=== PATIENT | female | born 1940 | race Caucasian/White ===

== ENCOUNTER 2020-11-08 11:22 | Outpatient (CLI) | payer MEDICARE, OTHER | END 2020-11-08 11:23 | disposition home or self-care (01) | LOC: CSHWCC 11:22 | PROVIDERS: ATTEND Nurse Practitioner Family | DX: I87.2 Venous insufficiency (chronic) (peripheral) (principal); E11.621 Type 2 diabetes mellitus with foot ulcer; L97.412 Non-pressure chronic ulcer of right heel and midfoot with fat layer exposed; L97.512 Non-pressure chronic ulcer of other part of right foot with fat layer exposed; E11.622 Type 2 diabetes mellitus with other skin ulcer; L97.322 Non-pressure chronic ulcer of left ankle with fat layer exposed; E11.51 Type 2 diabetes mellitus with diabetic peripheral angiopathy without gangrene; I70.203 Unspecified atherosclerosis of native arteries of extremities, bilateral legs; E11.69 Type 2 diabetes mellitus with other specified complication; M86.171 Other acute osteomyelitis, right ankle and foot; I89.0 Lymphedema, not elsewhere classified; B96.89 Other specified bacterial agents as the cause of diseases classified elsewhere; E03.8 Other specified hypothyroidism; J44.9 Chronic obstructive pulmonary disease, unspecified; L08.89 Other specified local infections of the skin and subcutaneous tissue; L27.9 Dermatitis due to unspecified substance taken internally; L90.6 Striae atrophicae; L95.0 Livedoid vasculitis; M79.604 Pain in right leg; R19.7 Diarrhea, unspecified; R60.0 Localized edema; S69.90XS Unspecified injury of unspecified wrist, hand and finger(s), sequela | CPT/HCPCS: 11042; 29581; 99213; G0463 ==

== ENCOUNTER 2020-11-29 11:39 | Outpatient (CLI) | payer MEDICARE, OTHER | END 2020-11-29 11:40 | disposition home or self-care (01) | LOC: CSHWCC 11:39 | PROVIDERS: ATTEND Nurse Practitioner Family | DX: S69.90XD Unspecified injury of unspecified wrist, hand and finger(s), subsequent encounter (principal); E11.621 Type 2 diabetes mellitus with foot ulcer; L97.412 Non-pressure chronic ulcer of right heel and midfoot with fat layer exposed; L97.512 Non-pressure chronic ulcer of other part of right foot with fat layer exposed; R60.0 Localized edema; L08.89 Other specified local infections of the skin and subcutaneous tissue; B96.89 Other specified bacterial agents as the cause of diseases classified elsewhere; E03.8 Other specified hypothyroidism; I70.203 Unspecified atherosclerosis of native arteries of extremities, bilateral legs; I87.2 Venous insufficiency (chronic) (peripheral); I89.0 Lymphedema, not elsewhere classified; J44.9 Chronic obstructive pulmonary disease, unspecified; L27.9 Dermatitis due to unspecified substance taken internally; L90.6 Striae atrophicae; L95.0 Livedoid vasculitis; M79.604 Pain in right leg; M86.171 Other acute osteomyelitis, right ankle and foot; R19.7 Diarrhea, unspecified | CPT/HCPCS: 29581; 97139; G0463; 99213 ==

== ENCOUNTER 2020-12-20 09:55 | Outpatient (CLI) | payer MEDICARE, OTHER | END 2020-12-20 09:56 | disposition home or self-care (01) | LOC: CSHWCC 09:55 | PROVIDERS: ATTEND Nurse Practitioner Family | DX: S69.90XD Unspecified injury of unspecified wrist, hand and finger(s), subsequent encounter (principal); E11.621 Type 2 diabetes mellitus with foot ulcer; L97.412 Non-pressure chronic ulcer of right heel and midfoot with fat layer exposed; L97.512 Non-pressure chronic ulcer of other part of right foot with fat layer exposed; R60.0 Localized edema; L08.89 Other specified local infections of the skin and subcutaneous tissue; B96.89 Other specified bacterial agents as the cause of diseases classified elsewhere; E03.8 Other specified hypothyroidism; I70.203 Unspecified atherosclerosis of native arteries of extremities, bilateral legs; I87.2 Venous insufficiency (chronic) (peripheral); I89.0 Lymphedema, not elsewhere classified; J44.9 Chronic obstructive pulmonary disease, unspecified; L27.9 Dermatitis due to unspecified substance taken internally; L90.6 Striae atrophicae; L95.0 Livedoid vasculitis; M79.604 Pain in right leg; M86.171 Other acute osteomyelitis, right ankle and foot; R19.7 Diarrhea, unspecified | CPT/HCPCS: 11042; 29581; 97139; G0463; 99214 ==

== ENCOUNTER 2021-04-04 09:45 | Outpatient (CLI) | payer OTHER | END 2021-04-04 09:46 | disposition home or self-care (01) | LOC: CSHWCC 09:45 | PROVIDERS: ATTEND Nurse Practitioner Family | DX: S69.90XS Unspecified injury of unspecified wrist, hand and finger(s), sequela (principal); E11.621 Type 2 diabetes mellitus with foot ulcer; L97.412 Non-pressure chronic ulcer of right heel and midfoot with fat layer exposed; R60.0 Localized edema; I87.2 Venous insufficiency (chronic) (peripheral); I89.0 Lymphedema, not elsewhere classified; M86.171 Other acute osteomyelitis, right ankle and foot; M79.604 Pain in right leg; I70.203 Unspecified atherosclerosis of native arteries of extremities, bilateral legs; R19.7 Diarrhea, unspecified; L27.9 Dermatitis due to unspecified substance taken internally; L90.6 Striae atrophicae; L95.0 Livedoid vasculitis; J44.9 Chronic obstructive pulmonary disease, unspecified; E03.8 Other specified hypothyroidism; B96.89 Other specified bacterial agents as the cause of diseases classified elsewhere | CPT/HCPCS: 29581; 99213; G0463 ==

== ENCOUNTER 2021-07-04 10:40 | Outpatient (CLI) | payer OTHER | END 2021-07-04 10:41 | disposition home or self-care (01) | LOC: CSHWCC 10:40 | PROVIDERS: ATTEND Nurse Practitioner Family | DX: I87.2 Venous insufficiency (chronic) (peripheral) (principal); S69.90XD Unspecified injury of unspecified wrist, hand and finger(s), subsequent encounter; E11.621 Type 2 diabetes mellitus with foot ulcer; L97.412 Non-pressure chronic ulcer of right heel and midfoot with fat layer exposed; E11.51 Type 2 diabetes mellitus with diabetic peripheral angiopathy without gangrene; B96.89 Other specified bacterial agents as the cause of diseases classified elsewhere; E03.8 Other specified hypothyroidism; I70.203 Unspecified atherosclerosis of native arteries of extremities, bilateral legs; I89.0 Lymphedema, not elsewhere classified; J44.9 Chronic obstructive pulmonary disease, unspecified; L08.89 Other specified local infections of the skin and subcutaneous tissue; L27.9 Dermatitis due to unspecified substance taken internally; L90.6 Striae atrophicae; L95.0 Livedoid vasculitis; M79.604 Pain in right leg; M86.171 Other acute osteomyelitis, right ankle and foot; R19.7 Diarrhea, unspecified; R60.0 Localized edema | CPT/HCPCS: 29581; 99213; G0463 ==

== ENCOUNTER 2021-08-22 15:10 | Outpatient (CLI) | payer OTHER | END 2021-08-22 15:11 | disposition home or self-care (01) | LOC: CSHWCC 15:10 | PROVIDERS: ATTEND Nurse Practitioner Family | DX: I87.2 Venous insufficiency (chronic) (peripheral) (principal); E11.621 Type 2 diabetes mellitus with foot ulcer; L97.411 Non-pressure chronic ulcer of right heel and midfoot limited to breakdown of skin; L97.412 Non-pressure chronic ulcer of right heel and midfoot with fat layer exposed; L97.521 Non-pressure chronic ulcer of other part of left foot limited to breakdown of skin; L97.511 Non-pressure chronic ulcer of other part of right foot limited to breakdown of skin; I70.203 Unspecified atherosclerosis of native arteries of extremities, bilateral legs; I89.0 Lymphedema, not elsewhere classified; R60.0 Localized edema; E11.69 Type 2 diabetes mellitus with other specified complication; M86.171 Other acute osteomyelitis, right ankle and foot; J44.9 Chronic obstructive pulmonary disease, unspecified; S69.90XD Unspecified injury of unspecified wrist, hand and finger(s), subsequent encounter; B96.89 Other specified bacterial agents as the cause of diseases classified elsewhere; E03.8 Other specified hypothyroidism; L08.89 Other specified local infections of the skin and subcutaneous tissue; L27.9 Dermatitis due to unspecified substance taken internally; L90.6 Striae atrophicae; L95.0 Livedoid vasculitis; M79.604 Pain in right leg; R19.7 Diarrhea, unspecified ==

== ENCOUNTER 2021-09-19 13:11 | Outpatient (CLI) | payer MEDICARE, OTHER | END 2021-09-19 13:12 | disposition home or self-care (01) | LOC: CSHWCC 13:11 | PROVIDERS: ATTEND Nurse Practitioner Family | DX: I87.2 Venous insufficiency (chronic) (peripheral) (principal); E11.621 Type 2 diabetes mellitus with foot ulcer; L97.412 Non-pressure chronic ulcer of right heel and midfoot with fat layer exposed; L97.512 Non-pressure chronic ulcer of other part of right foot with fat layer exposed; L97.322 Non-pressure chronic ulcer of left ankle with fat layer exposed; S69.90XD Unspecified injury of unspecified wrist, hand and finger(s), subsequent encounter; E11.51 Type 2 diabetes mellitus with diabetic peripheral angiopathy without gangrene; I70.203 Unspecified atherosclerosis of native arteries of extremities, bilateral legs; E11.69 Type 2 diabetes mellitus with other specified complication; M86.171 Other acute osteomyelitis, right ankle and foot; R60.0 Localized edema; I89.0 Lymphedema, not elsewhere classified; B96.89 Other specified bacterial agents as the cause of diseases classified elsewhere; E03.8 Other specified hypothyroidism; J44.9 Chronic obstructive pulmonary disease, unspecified; L08.89 Other specified local infections of the skin and subcutaneous tissue; L27.9 Dermatitis due to unspecified substance taken internally; L90.6 Striae atrophicae; L95.0 Livedoid vasculitis; M79.604 Pain in right leg; R19.7 Diarrhea, unspecified ==

== ENCOUNTER 2021-10-17 13:21 | Outpatient (CLI) | payer MEDICARE, OTHER | END 2021-10-17 13:22 | disposition home or self-care (01) | LOC: CSHWCC 13:21 | PROVIDERS: ATTEND Nurse Practitioner Family | DX: L97.522 Non-pressure chronic ulcer of other part of left foot with fat layer exposed (principal); L97.512 Non-pressure chronic ulcer of other part of right foot with fat layer exposed; R60.0 Localized edema | CPT/HCPCS: 97139; G0463; 99214 ==

== ENCOUNTER 2021-12-26 12:50 | Outpatient (CLI) | payer OTHER, MEDICARE | END 2021-12-26 12:51 | disposition home or self-care (01) | LOC: CSHWCC 12:50 | PROVIDERS: ATTEND Nurse Practitioner Family | DX: L97.512 Non-pressure chronic ulcer of other part of right foot with fat layer exposed (principal); R60.0 Localized edema ==

== ENCOUNTER 2022-01-23 10:30 | Outpatient (CLI) | payer MEDICARE, OTHER | END 2022-01-23 10:31 | disposition home or self-care (01) | LOC: CSHWCC 10:30 | PROVIDERS: ATTEND Nurse Practitioner Family | DX: S91.309D Unspecified open wound, unspecified foot, subsequent encounter (principal); R60.0 Localized edema | CPT/HCPCS: 29581 ==

== ENCOUNTER 2022-02-13 10:33 | Outpatient (CLI) | payer MEDICARE, OTHER | END 2022-02-13 10:34 | disposition home or self-care (01) | LOC: CSHWCC 10:33 | PROVIDERS: ATTEND Nurse Practitioner Family | DX: S91.301D Unspecified open wound, right foot, subsequent encounter (principal); R60.0 Localized edema | CPT/HCPCS: 29581 ==

== ENCOUNTER 2022-03-11 09:55 | Outpatient (CLI) | payer MEDICARE, OTHER | END 2022-03-11 09:56 | disposition home or self-care (01) | LOC: CSHWCC 09:55 | PROVIDERS: ATTEND Nurse Practitioner Family | DX: S51.002D Unspecified open wound of left elbow, subsequent encounter (principal); S51.001D Unspecified open wound of right elbow, subsequent encounter; S91.101D Unspecified open wound of right great toe without damage to nail, subsequent encounter; I87.312 Chronic venous hypertension (idiopathic) with ulcer of left lower extremity; L97.522 Non-pressure chronic ulcer of other part of left foot with fat layer exposed; R60.0 Localized edema | CPT/HCPCS: 87070; 87077; 87186; 87205 ==

== ENCOUNTER 2022-04-08 10:09 | Outpatient (CLI) | payer MEDICARE, OTHER | END 2022-04-08 10:10 | disposition home or self-care (01) | LOC: CSHWCC 10:09 | PROVIDERS: ATTEND Nurse Practitioner Family | DX: S81.001D Unspecified open wound, right knee, subsequent encounter (principal); S51.002D Unspecified open wound of left elbow, subsequent encounter; I87.311 Chronic venous hypertension (idiopathic) with ulcer of right lower extremity; L97.412 Non-pressure chronic ulcer of right heel and midfoot with fat layer exposed; R60.0 Localized edema; S91.101D Unspecified open wound of right great toe without damage to nail, subsequent encounter | CPT/HCPCS: 11042; 29581; 97139; G0463; 99213 ==

== ENCOUNTER 2022-05-01 10:14 | Outpatient (CLI) | payer MEDICARE, OTHER | END 2022-05-01 10:15 | disposition home or self-care (01) | LOC: CSHWCC 10:14 | PROVIDERS: ATTEND Preventive Medicine Undersea and Hyperbaric Medicine | DX: L89.320 Pressure ulcer of left buttock, unstageable (principal); L89.310 Pressure ulcer of right buttock, unstageable; L89.150 Pressure ulcer of sacral region, unstageable; I87.313 Chronic venous hypertension (idiopathic) with ulcer of bilateral lower extremity; L97.412 Non-pressure chronic ulcer of right heel and midfoot with fat layer exposed; L97.312 Non-pressure chronic ulcer of right ankle with fat layer exposed; L97.522 Non-pressure chronic ulcer of other part of left foot with fat layer exposed; S91.101D Unspecified open wound of right great toe without damage to nail, subsequent encounter | CPT/HCPCS: 29581 ==